=== PATIENT | female | born 1970 | race Caucasian/White ===

== ENCOUNTER 2024-08-15 08:48 | Outpatient (CLI) | payer MEDICAID, SELFPAY ==
--- NOTE | 2024-08-15 08:58 | FL_ITS ---
WS: [id number] Barium swallow and esophagram, 08/15/2024 Clinical Data: dysphagia Comparison: None. Fluoroscopy time: 1min [id number] # of spot films: 7 Findings: The patient swallowed the thick and thin barium, and it flowed through the hypopharynx without hesitation. No stricture, mass, polyp or erosion was seen. There is a C5-C7 anterior disc fusion. The barium entered the esophagus and there was normal motility throughout. No hiatal hernia, reflux, stricture, polyp, mass, erosion or ulcer was noted. The barium passed normally into the fundus of the stomach.. FL/FL barium swallow [id number] Impression: Normal esophagram.
== END 2024-08-15 08:49 | disposition home or self-care (01) ==
LOC: RAD 08:50
PROVIDERS: PCP Otolaryngology; Visit Provider Otolaryngology
DX: R13.10 Dysphagia, unspecified (principal); R07.0 Pain in throat; R93.7 Abnormal findings on diagnostic imaging of other parts of musculoskeletal system
CPT/HCPCS: 74220

== ENCOUNTER 2024-10-05 08:38 | Outpatient (CLI) | payer MEDICAID, SELFPAY ==
--- NOTE | 2024-10-05 08:41 | CT_ITS ---
WS: [id number] CT NECK TECHNIQUE: Contrast-enhanced CT of the neck with coronal and sagittal reformatted images. CLINICAL INFORMATION: DYSPHAGIA,PHARYNGOESOPHAGEAL PHASE/FOCAL THROAT PAIN COMPARISON: None. DLP: 166.[address] scans at [facility] use at least one of these dose optimization techniques: automated exposure control; mA and/or kV adjustment per patient size (includes targeted exams where dose is matched to clinical indication); or iterative reconstruction. FINDINGS: Straightening of the normal cervical lordosis. Prior cervical fusion C5-C7. Lung apices are well aerated. Paranasal sinuses and mastoid air cells are well aerated. Normal posterior nasopharynx. Normal parapharyngeal fat. Parotid glands are normal. Normal submandibular glands. No evidence of supraglottic or glottic mass. Normal subglottic airway. No cervical lymphadenopathy. Slight ballooning of the RIGHT laryngeal ventricle. Recommend correlation for RIGHT vocal cord dysfunction. Large RIGHT thyroid nodule measuring 1.2 x 2.5 cm. Recommend further evaluation with ultrasound. CT/CT neck w con* [id number] IMPRESSION: 1. Large RIGHT thyroid nodule measuring 1.2 x 2.5 cm. Recommend further evalua tion with ultrasound. 2. No evidence of supraglottic or glottic mass. No cervical lymphadenopathy. 3. Prior cervical fusion C5-C7. 4. Slight ballooning of the RIGHT laryngeal ventricle. Recommend further evalu ation with endoscopy to evaluate vocal cord dysfunction
[2024-10-05] MEDS: iohexol 350 mg/mL 500 mL Btl (per mL) IV (09:04)
== END 2024-10-05 08:39 | disposition home or self-care (01) ==
LOC: RAD 08:39
PROVIDERS: PCP Otolaryngology; Visit Provider Otolaryngology
DX: R13.14 Dysphagia, pharyngoesophageal phase (principal); R07.0 Pain in throat; E04.1 Nontoxic single thyroid nodule; Z98.1 Arthrodesis status; R93.89 Abnormal findings on diagnostic imaging of other specified body structures
CPT/HCPCS: 70491